=== PATIENT | female | born 1985 | race Caucasian/White ===

== ENCOUNTER 2016-06-25 18:57 | Emergency (ER) | payer MEDICAID ==
[2016-06-25 19:03] VITALS: BP 150/76; PULSE 79; RESP 16; TEMP 98.1; O2SAT 96
--- NOTE | 2016-06-25 19:17 | EDPHY ---
HPI/HX/ROS/PE/MDM Narrative: CHIEF COMPLAINT: "I have this thing I thought was an ingrown hair and it popped " HPI: The patient is a 30 y/o female complaining of pain around a possible abscess to her right groin for the last few days. She initially had a painful, red bump near her right groin that she thought was an ingrown hair. Two days ago it popped and drained pus, but has continued to be painful particularly to touch. She thinks she has another one forming on the opposite side on her left groin. She has no previous history of abscesses. She is currently taking medication for hepatitis C. She will not allow me to touch the site unless I "strap her down." REVIEW OF SYSTEMS: Aside from elements discussed in the HPI, a comprehensive 10-point review of systems was reviewed and is negative. PMH: PTSD, Hepatitis C SOCIAL HISTORY: Lives in [place], smoker PHYSICAL EXAM: General:Patient is alert, in no acute distress. She is extremely anxious and emotional. Abdomen:The abdomen is nontender to palpation. There are no peritoneal signs. There are normal bowel sounds. Back: Normal to inspection. No tenderness to palpation. Skin: Normal color. No rash. Warm and dry. 1cm area of erythema and draining wound in right inguinal crease - patient will not allow me to palpate the area. Second raised, erythematous region near right inguinal crease. No streaking. Extremities: Normal appearance. Full range of motion. Neuro: Oriented x3. Normal motor function. Normal sensory function. ED Course: Patient will be discharged on Keflex for abscess with specific return precautions. Ibuprofen for pain. Patient agrees with plan. MDM: This patient presents with what appears to be a spontaneously draining small abscess to the right inguinal crease. The patient is extremely anxious and upset and refuses to allow me to actually fully examine lesion or palpated. I explained to her that I am unable to adequately determine the nature of her issue without palpation. She states that the only way I would be able to touch it is if we physically strapped her down. I think this is a somewhat inappropriate comment, and I explained to her that we do not routinely restrain patients for something like this. There is no surrounding cellulitis in the patient's abdomen is benign. The wound is clearly draining spontaneously, so I do not think that incision and drainage is essential, and certainly the patient states she cannot tolerate at this point. The patient will be started on Keflex and instructed to return within 2-3 days for a wound check. General Time Seen by Provider: 06/25/16 19:08 Initial Vital Signs: Initial Vital Signs Temperature (C) 36.7 C 06/25/16 18:59 Heart Rate 79 06/25/16 18:59 Respiratory Rate 16 06/25/16 18:59 Blood Pressure 150/76 H 06/25/16 18:59 O2 Sat (%) 96 06/25/16 18:59 O2 Delivery Mode Room Air Allergies/Adverse Reactions: No Known Allergies Allergy (Unverified 06/25/16 19:04) Home Medications: Medication Instructions Recorded Cephalexin [Keflex] 500 mg PO Q6H #28 cap 06/25/16 Moderiba 06/25/16 Viekira Ab 06/25/16 Departure - Departure Disposition: Home, Routine, Self-Care Clinical Impression: Abscess Condition: Good Instructions: Abscess (ED) Additional Instructions: 1. Take Keflex as prescribed. Be sure to complete the entire prescription even if your symptoms have resolved. 2. Use 600mg ibuprofen every 6-8 hours as needed for pain for the next 2-3 days. 3. Okay to apply Neosporin to the area and cover with a clean bandage. 5. Return to the ED for symptoms not improved after 3 days or worsening of condition. Referrals: [facility] [Outside] - As per Instructions Prescriptions: Cephalexin [Keflex] 500 mg PO Q6H #28 cap Report Scribed for: Stone Patel Report Scribed by: Maggie Kay Date of Report: 06/25/16 Time of Report: 19:16 Physician Review and Approval Statement: Portions of this note were transcribed by an ED scribe. I personally performed the history, physical exam, and medical decision making; and confirm the accuracy of the information in the transcribed note.
[2016-06-25] MEDS ORDERED: CEPHALEXIN 500 MG CAP PO ONE (19:28)
== END 2016-06-25 19:44 | disposition home or self-care (01) ==
DX: L02.214 Cutaneous abscess of groin (principal); F17.200 Nicotine dependence, unspecified, uncomplicated

== ENCOUNTER 2016-07-01 09:52 | Emergency (ER) | payer MEDICAID ==
--- NOTE | 2016-07-01 10:03 | EDPHY ---
H & P Time Seen by Provider: 07/01/16 09:58 - Personal History Tetanus Vaccine Date: < 10 YEARS - Medical/Surgical History Hx Asthma: Yes Hx Chronic Respiratory Disease: No Hx Diabetes: No Hx Cardiac Disease: No Hx Renal Disease: No Hx Cirrhosis: Yes Hx Alcoholism: No Hx HIV/AIDS: No Hx Splenectomy or Spleen Trauma: No Other PMH: HEP C - Social History Smoking Status: Never smoked Allergies/Adverse Reactions: No Known Allergies Allergy (Unverified 06/25/16 19:04) Home Medications: Medication Instructions Recorded Cephalexin [Keflex] 500 mg PO Q6H #28 cap 06/25/16 Moderiba 06/25/16 Viekira Ab 06/25/16 Medical Decision Making ED Course/Re-evaluation: CHIEF COMPLAINT: pseudoseizures HISTORY OF PRESENT ILLNESS: 30-year-old female who is homeless. She was at a institution to try and help her get some housing and money. She was having difficulty apparently getting those things and she walked outside and had a fake seizure. She was having an additional fake seizure when EMS arrived since she was able to walk and get up during the seizure and then kept having more seizures. She refused all treatment from EMS including IV monitoring or anything else and ripped all her leads off and would not allow an IV and would not allow them to take her coat off. She is really just looking for housing at this point. She has been treated recently for a tooth abscess and is on antibiotics. She has no specific complaints. REVIEW OF SYSTEMS: A 10 point review of systems was performed and is negative with the exception of the elements mentioned in the history of present illness. PHYSICAL EXAM: HR, BP, O2 Sat, RR. Temp noted. Her vital signs are 100% normal she is 99% on room air General Appearance: Alert, well hydrated, appropriate, and non-toxic appearing. Head: Atraumatic without scalp tenderness or obvious injury Eyes: Pupils equal, round, reactive to light and accommodation, EOMI, no trauma , no injection. Ears: Clear bilaterally, no perforation, normal landmarks Nose: Atraumatic, no rhinorrhea, clear. Throat: There is no erythema or exudates, no lesions, normal tonsils, mucus membranes moist. Neck: Supple, 2+ carotid upstroke, nontender, no lymphadenopathy. Respiratory: No retractions, no distress, no wheezes, and no accessory muscle use. Lungs are clear to auscultation bilaterally. Cardiovascular: Regular rate and rhythm, no murmurs, rubs, or gallops. Bilateral carotid, radial, dorsalis pedis, and posterior tibial pulses intact. Good capillary refill all extremities. Gastrointestinal: Abdomen is soft, nontender, non-distended, no masses, no rebound, no guarding, no peritoneal signs. Musculoskeletal: Normal active ROM of all extremities, atraumatic. Neurological: Alert, appropriate, and interactive. The patient has normal DTRs and non-focal cranial nerves, motor, sensory, and cerebellar exam. Skin: No rashes, good turgor, no nodules on palpation. Past medical history: Hepatitis-C, tooth abscess Past surgical history: Noncontributory Family history: Noncontributory Social history: Homeless, abuses tobacco drugs and alcohol, unemployed, single , was refused for housing by social worker psychiatric this morning before calling the ambulance. MEDICAL DECISION MAKING: This patient has completely normal vital signs and a completely normal physical. In fact during her pseudo-seizure when she got mad at the ambulance crew she opened the back towards the ambulance and ran out of the ambulance. The fire department then tractor down and put her back in the ambulance where she proceeded to have another fake seizure. There was no evidence of a postictal state and once again she is able to talk and converse and has purposeful motor movements during her seizure. We will have our case management talk to this patient about some custodial housing options and she will be discharged from the ER now. Departure - Departure Disposition: Home, Routine, Self-Care Clinical Impression: Dissociative convulsions Condition: Good Instructions: Nonepileptic Seizures (ED)
[2016-07-01 10:12] VITALS: BP 105/71; PULSE 75; RESP 20; TEMP 98.1
[2016-07-01 10:22] VITALS: O2SAT 98
== END 2016-07-01 10:10 | disposition home or self-care (01) ==
LOC: EDUNIT#
DX: F44.5 Conversion disorder with seizures or convulsions (principal); J45.909 Unspecified asthma, uncomplicated